=== PATIENT | male | born 1970 | race Caucasian/White ===

== ENCOUNTER 2016-08-25 16:23 | Emergency (ER) | payer BC ==
[2016-08-25 16:38] VITALS: BP 140/92
--- NOTE | 2016-08-25 16:46 | UC ---
Throat Pain/Nasal Alberto HPI - HPI Summary HPI Summary: complaint of nasal congestion, sinus pressure that started 1 month ago has been intermittent but keeps returning intermittent headaches post nasal drip cough is rpoductive and worse in the morning left ear feels plugged up denies fever and chills took some ibuprofen and sinus decongestant with somerelief <Kourtney Lara - Last Filed: 08/25/16 16:59> <Melanie Montes De Oca - Last Filed: 08/25/16 20:55> - History of Current Complaint Chief Complaint: UCRespiratory Stated Complaint: SINUS CONGESTION Time Seen by Provider: 08/25/16 16:34 - Allergies/Home Medications Allergies/Adverse Reactions: Allergies Allergy/AdvReac Type Severity Reaction Status Date / Time No Known Allergies Allergy Verified 08/25/16 16:39 PMH/Surg Hx/FS Hx/Imm Hx Previously Healthy: Yes Endocrine History Of: 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 Denies: Diabetes Cardiovascular History Of: Reports: Hypertension - on meds Denies: Cardiac Disorders Respiratory History Of: Denies: COPD, Asthma GI/ History Of: Denies: Ulcer - Surgical History Surgical History: Yes Surgery Procedure, Year, and Place: WISDOM TEETH EXTRACTION - Family History Known Family History: Positive: None Negative: Cardiac Disease, Hypertension, Diabetes - Social History Occupation: Employed Full-time Lives: With Family Alcohol Use: Occasionally Substance Use Type: None Smoking Status (MU): Never Smoked Tobacco - Immunization History Most Recent Influenza Vaccination: [id number] Season <Kourtney Lara - Last Filed: 08/25/16 16:59> Review of Systems Constitutional: Negative Skin: Negative Eyes: Negative ENT: Ear Ache, Nasal Discharge Respiratory: Cough Cardiovascular: Negative Gastrointestinal: Negative Genitourinary: Negative Motor: Negative Neurovascular: Negative Musculoskeletal: Negative Neurological: Negative Psychological: Negative All Other Systems Reviewed And Are Negative: Yes <Kourtney Lara - Last Filed: 08/25/16 16:59> Physical Exam Triage Information Reviewed: Yes Vital Signs: Initial Vital Signs Temp 97.6 F 08/25/16 16:35 Pulse 110 08/25/16 16:35 Resp 18 08/25/16 16:35 BP 140/92 08/25/16 16:35 Pulse Ox 99 08/25/16 16:35 Vital Signs Reviewed: Yes Eyes: Positive: Conjunctiva Clear ENT: Positive: Pharynx normal, Nasal congestion, Nasal drainage, TM bulging, Other: - maxillary sinus tenderness. Negative: TM red Neck: Positive: No Lymphadenopathy Respiratory: Positive: Lungs clear, Normal breath sounds, No respiratory distress Cardiovascular: Positive: No Murmur, Tachycardia Abdomen Description: Positive: Nontender, No Organomegaly, Soft Bowel Sounds: Positive: Present Musculoskeletal: Positive: No Edema Neurological: Positive: Alert Psychological Exam: Normal Skin Exam: Normal <Anette Larany - Last Filed: 08/25/16 16:59> Vital Signs: Initial Vital Signs Temp 97.6 F 08/25/16 16:35 Pulse 110 08/25/16 16:35 Resp 18 08/25/16 16:35 BP 140/92 08/25/16 16:35 Pulse Ox 99 08/25/16 16:35 <Melanie Montes De Oca - Last Filed: 08/25/16 20:55> Throat Pain/Nasal Course/Dx - Differential Dx/Diagnosis Differential Diagnosis/HQI/PQRI: Sinusitis, URI Provider Diagnoses: sinusitis, elevated blood pressure and HR <MarcoKourtney - Last Filed: 08/25/16 16:59> Discharge <MarcoKourtney - Last Filed: 08/25/16 16:59> <Melanie Montes De Oca - Last Filed: 08/25/16 20:55> - Discharge Plan Condition: Stable Disposition: HOME Prescriptions: Amoxicillin/Clavulanate TAB* [Augmentin TAB 875*] 875 mg PO BID #19 tab Patient Education Materials: Sinusitis (ED) Referrals: No Primary Care Phys,NOPCP [Primary Care Provider] - Additional Instructions: please make followup appointment with your primary care provider for further evaluation of your elevated blood pressure and heart rate SINUSITIS What is Sinusitis? Sinusitis is inflammation or infection of the lining of the sinuses behind the bones in your cheeks or forehead. Sinusitis may occur following a common cold, flu, or other infection; allergies; a tooth infection that spreads to the sinuses; swimming in contaminated water; pressure changes in airplanes at high altitudes; violent sneezing or nose blowing or smoking or breathing other peoples smoke. Symptoms Might Include: Nasal Congestion Sneezing Watery eyes, eye irritation, or eye itching Headaches Pressure in the cheeks Wheezing Trouble smelling Sore throat and coughing may occur Treatment Recommendations: Take medicines as prescribed until completely gone. Drink plenty of fluids. Use saline nose spray to thin the mucous and help the sinuses drain. Use a vaporizer or humidifier. Apply warm compresses to the face or forehead several times a day for 10 to 20 minutes. Call Your Doctor or Return Here IF: Your pain increases during treatment. You develop a high temperature. You develop unusual swelling around the eyes. You have difficulty with your vision. You develop a severe headache, earache, or toothache. You develop increased fever or fever that does not respond to medication such as Tylenol?. You have difficulty breathing or catching your breath. You begin to have any other new symptoms that worry you.
[2016-08-25] MEDS ORDERED: Amoxicillin/Clavulanate TAB* 875 MG PO ONE (16:51)
== END 2016-08-25 16:57 | disposition home or self-care (01) ==
LOC: UCEAST 16:23
DX: J32.9 Chronic sinusitis, unspecified (principal); I10 Essential (primary) hypertension
CPT/HCPCS: 99212; A9270-GY; G0463

== ENCOUNTER 2016-11-07 02:23 | Emergency (ER) | payer BC ==
--- NOTE | 2016-11-07 03:33 | ED ---
Dayanara Thapa SooYoung, scribed for Tigre Delaney MD on 11/07/16 at 0242 . Substance Abuse/Use - HPI Summary HPI Summary: LEVEL 5 CAVEAT: HPI LIMITED DUE TO PT CONDITION, INTOXICATED. A 46 y/o M BIBA found on sidewalk intoxicated. - History Of Current Complaint Chief Complaint: EDSubstanceAbuse Stated Complaint: ALCOHOL USE Hx Obtained From: EMS - Allergies/Home Medications Allergies/Adverse Reactions: Allergies Allergy/AdvReac Type Severity Reaction Status Date / Time No Known Allergies Allergy Verified 11/07/16 02:29 PMH/Surg Hx/FS Hx/Imm Hx Previously Healthy: No Endocrine/Hematology History: Reports: Hx Thyroid Disease - HX GRAVE'S DISEASE Denies: Hx Diabetes Cardiovascular History: Reports: Hx Hypertension - on meds Respiratory History: Denies: Hx Asthma, Hx Chronic Obstructive Pulmonary Disease (COPD) GI History: Denies: Hx Ulcer - Surgical History Surgery Procedure, Year, and Place: WISDOM TEETH EXTRACTION Infectious Disease History: No Infectious Disease History: Denies: Hx Hepatitis, Hx Human Immunodeficiency Virus (HIV), Traveled Outside the in Last 30 Days - Family History Known Family History: Positive: None Negative: Cardiac Disease, Hypertension, Diabetes - Social History Occupation: Employed Full-time Lives: With Family Alcohol Use: Weekly Alcohol Amount: pt states he gets intoxicated "every other day" Hx Substance Use: No Substance Use Type: Reports: None Hx Tobacco Use: No Smoking Status (MU): Never Smoked Tobacco Review of Systems - ROS Summary Review of Systems Summary: LEVEL 5 CAVEAT: ROS LIMITED DUE TO PT CONDITION, INTOXICATED. All Other Systems Reviewed And Are Negative: Yes Physical Exam Triage Information Reviewed: Yes Vital Signs On Initial Exam: Initial Vitals Temp Pulse Resp BP Pulse Ox 97.3 F 81 19 125/72 99 11/07/16 02:27 11/07/16 02:27 11/07/16 02:27 11/07/16 02:27 11/07/16 02:27 Vital Signs Reviewed: Yes Appearance: Positive: Well-Appearing, No Pain Distress - aob Skin: Positive: Warm Head/Face: Positive: Normal Head/Face Inspection Eyes: Positive: ALEXIA ENT: Positive: Hearing grossly normal Neck: Positive: Supple Respiratory/Lung Sounds: Positive: Breath Sounds Present Cardiovascular: Positive: RRR Abdomen Description: Positive: Nontender, Soft Bowel Sounds: Positive: Present Musculoskeletal: Positive: Strength/ROM Intact Neurological: Positive: Alert, Oriented to Person Place, Time - [place] Coma Scale Coma Scale Total: 15 Diagnostics - Vital Signs Vital Signs Temp Pulse Resp BP Pulse Ox 11/07/16 02:27 97.3 F 81 19 125/72 99 - Laboratory Lab Results: Lab Results 11/07/16 Range/Units 02:40 Serum Alcohol 277 H (<10) mg/dL Lab Statement: Any lab studies that have been ordered have been reviewed, and results considered in the medical decision making process. Re-Evaluation - Re-Evaluation First Eval Re-Evaluation Time: 11:24 - good ambulation Course/Dx - Diagnoses Provider Diagnoses: Alcohol intoxication Discharge - Discharge Plan Condition: Stable Disposition: HOME Patient Education Materials: Alcohol Intoxication (ED) Referrals: No Primary Care Phys,NOPCP [Primary Care Provider] - [facility] [place] [facility] [Outside] The documentation as recorded by the Dayanara husain SooYoung accurately reflects the service I personally performed and the decisions made by me, Tigre Delaney MD.
[2016-11-07 08:56] VITALS: BP 108/79
--- NOTE | 2016-11-07 11:27 | ED ---
Pricilla Thapa Auryana, scribed for Raheem Vega MD on 11/07/16 at 1124 . Progress - Progress Note Progress Note: Patient was signed out by Dr. Delaney Patient came in to the ED with alcohol intoxication. Patient is A&O x3. Patient has a normal cognition. Patient was ambulating with good steady gait. Patient had breakfast, therefore patient with be discharged hoe with PCP follow up. Patient is A&O x3 and is hemodynamically stable. P/E: Vital signs: reviewed General: Patient is comfortable lying in stretcher with no signs of distress HEENT: within normal limits Lungs: CTA B/L CVS: S1 & S2 present. No murmurs appreciated. ABDOMEN: Soft, non-tender. No signs of distention. No rebound no guarding, and no masses palpated. Bowel sounds are normal. EXTREMITIES: FROM in all major joints, no edema, no cyanosis or clubbing. NEURO: Alert and oriented x 3. No acute neurological deficits. Speech is normal and follows commands. SKIN: Dry and warm Re-Evaluation - Re-Evaluation First Eval Re-Evaluation Time: 11:24 - good ambulation Course/Dx - Course Course Of Treatment: Patient was signed out by Dr. Delaney. Patient came in to the ED with alcohol intoxication. Patient is A&O x3. Patient has a normal cognition. Patient was ambulating with good steady gait. Patient had breakfast, therefore patient with be discharged hoe with PCP follow up. Patient is A&O x3 and is hemodynamically stable. - Diagnoses Provider Diagnoses: Alcohol intoxication The documentation as recorded by the Pricilla husain Auryana accurately reflects the service I personally performed and the decisions made by , Raheem Vega MD.
== END 2016-11-07 11:10 | disposition home or self-care (01) ==
LOC: ED 02:23
DX: F10.129 Alcohol abuse with intoxication, unspecified (principal); Y90.8 Blood alcohol level of 240 mg/100 ml or more
CPT/HCPCS: 36415; 80320; 99282; G0480

== ENCOUNTER 2016-11-25 12:48 | Emergency (ER) | payer BC ==
[2016-11-25 13:28] VITALS: BP 127/94
--- NOTE | 2016-11-25 14:01 | UC ---
Throat Pain/Nasal Alberto HPI - HPI Summary HPI Summary: 46 y/o male presents to the urgent care c/o of sinus pain and congestion with yellowish nasal discharge and pressure for the past 3 weeks. Pt reports he also has a non-productive cough that is worse at night. He has been taking Robitussin to alleviate symptoms, but now he feels is getting worse. He also has a mild STEARNS, 3/10. Pt denies fever, SOB, chest pain, N/V/D, myalgias. - History of Current Complaint Chief Complaint: UCGeneralIllness Stated Complaint: SINUS COMPLAINT Time Seen by Provider: 11/25/16 13:40 Hx Obtained From: Patient Onset/Duration: Gradual Onset, Lasting Weeks Severity: Moderate Pain Intensity: 3 Pain Scale Used: 0-10 Numeric Cough: Nonproductive Associated Signs & Symptoms: Positive: Sinus Discomfort, Nasal Discharge - yellowish in color. Negative: Fever, Vomiting, Rash - Epiglottits Risk Factors Epiglottis Risk Factors: Negative - Allergies/Home Medications Allergies/Adverse Reactions: Allergies Allergy/AdvReac Type Severity Reaction Status Date / Time No Known Allergies Allergy Verified 11/25/16 13:28 PMH/Surg Hx/FS Hx/Imm Hx Previously Healthy: Yes Endocrine History: Hypothyroidism Cardiovascular History: Hypertension - Surgical History Surgical History: Yes Surgery Procedure, Year, and Place: WISDOM TEETH EXTRACTION - Family History Known Family History: Positive: None Negative: Cardiac Disease, Hypertension, Diabetes Family History: hypothyrodism - Social History Occupation: Employed Full-time Lives: With Family Alcohol Use: Weekly Alcohol Amount: pt states he gets intoxicated "every other day" Substance Use Type: None Smoking Status (MU): Never Smoked Tobacco - Immunization History Most Recent Influenza Vaccination: [id number] Season Review of Systems Constitutional: Negative Skin: Negative Eyes: Negative ENT: Nasal Discharge - with sinus congestion and pain x 3 weeks Respiratory: Cough - nonproductive Cardiovascular: Negative Gastrointestinal: Negative Genitourinary: Negative Motor: Negative Neurovascular: Negative Musculoskeletal: Negative Neurological: Negative Psychological: Negative All Other Systems Reviewed And Are Negative: Yes Physical Exam Triage Information Reviewed: Yes Appearance: Well-Appearing, No Pain Distress, Well-Nourished, Obese Vital Signs: Initial Vital Signs Temp 97.8 F 11/25/16 13:23 Pulse 85 11/25/16 13:23 Resp 18 11/25/16 13:23 BP 127/94 11/25/16 13:23 Pulse Ox 97 11/25/16 13:23 Vital Signs Reviewed: Yes Eye Exam: Normal Eyes: Positive: Conjunctiva Clear - PERRLA, EOMI, fundus grossly normal ENT: Positive: Hearing grossly normal, Pharynx normal - Positive yellowish postnasal drip, Nasal congestion, Nasal drainage - nasal mucosa with erythema and edematous and positive yellowish nasal discharge., TMs normal. Negative: Tonsillar swelling, Tonsillar exudate Dental Exam: Normal Neck exam: Normal Neck: Positive: Supple, Nontender, No Lymphadenopathy Respiratory Exam: Normal Respiratory: Positive: Chest non-tender, Lungs clear, Normal breath sounds. Negative: Wheezing Cardiovascular Exam: Normal Cardiovascular: Positive: RRR, No Murmur, Pulses Normal Abdominal Exam: Normal Abdomen Description: Positive: Nontender, No Organomegaly, Soft. Negative: CVA Tenderness (R), CVA Tenderness (L) Bowel Sounds: Positive: Present Musculoskeletal Exam: Normal Musculoskeletal: Positive: Strength Intact, ROM Intact, No Edema Neurological Exam: Normal Psychological Exam: Normal Skin Exam: Normal Throat Pain/Nasal Course/Dx - Course Course Of Treatment: Sinus pain and congestion, non productive cough x 3 weeks: Hx obtained. PE abnormal findings:ENT: Positive: Hearing grossly normal, Pharynx normal - Positive yellowish postnasal drip, Nasal congestion, Nasal drainage - nasal mucosa with erythema and edematous and positive yellowish nasal discharge., TMs normal. Negative: Tonsillar swelling, Tonsillar exudate. Pt with 3 weeks of sinusitis, Pt Rx amoxicillin 875mg PO BID x 10 days and Tessalon 100mg PO tabs to alleviate symptoms. Advised to increase fluid intake and rest. To take full course of antibiotic to avoid recurrence. Pt undertood and agreed. - Differential Dx/Diagnosis Differential Diagnosis/HQI/PQRI: Laryngitis, Peritonsillar Abscess, Pharyngitis , Sinusitis, Tonsillitis, URI Provider Diagnoses: Bacterial sinusitis, bronchospasm Discharge - Discharge Plan Condition: Stable Disposition: HOME Prescriptions: Amoxicillin (*) [Amoxicillin 875 MG (*)] 875 mg PO BID #20 tab Benzonatate CAP* [Tessalon 100 MG CAP*] 100 mg PO TID #15 cap Patient Education Materials: Sinusitis (ED), Bronchospasm (ED) Referrals: No Primary Care Phys,NOPCP [Primary Care Provider] - [facility] [place] [facility] [Outside] Additional Instructions: Please take medications as instructed and finish the full course of treatment to avoid recurrent infection. Increase fluid intake, and rest. If you do not improve or if symptoms worsen after the course of antibiotics, you should either follow up with your PCP or return to the urgent care for further evaluation and treatment.
== END 2016-11-25 14:07 | disposition home or self-care (01) ==
LOC: UCEAST 12:48
DX: J32.9 Chronic sinusitis, unspecified (principal); J98.01 Acute bronchospasm; E03.9 Hypothyroidism, unspecified; I10 Essential (primary) hypertension; E66.9 Obesity, unspecified
CPT/HCPCS: 99212; G0463

== ENCOUNTER 2016-12-30 10:08 | Emergency (ER) | payer BC ==
[2016-12-30] MEDS ORDERED: Albuterol 2.5 MG/3 ML NEB.SOL* (0.083%) INH ONE ×2 (10:26→11:21)
[2016-12-30] MEDS ORDERED: Ipratropium 0.5MG/2.5ML NEB* 0.5 MG/2.5 ML NEB.SOLN INH ONE (10:26)
[2016-12-30] MEDS ORDERED: methylPREDNISolone 125 MG* 2 ML VIAL IV ONE (10:27)
--- NOTE | 2016-12-30 10:28 | UC ---
Respiratory Complaint HPI - HPI Summary HPI Summary: 46 yo male awoke about 3 AM with stomach acid in his mouth. Hx of GERD felt as though he aspirated some throughout the night got progressively worse with cough/shortness of breath/ diaphoresis/weakness/fever and chills chest hurts with deep inspiration - History of Current Complaint Stated Complaint: COUGH CHILLS Time Seen by Provider: 12/30/16 10:25 Hx Obtained From: Patient Onset/Duration: Sudden Onset, Lasting Hours Timing: Constant Severity Initially: Mild Severity Currently: Severe Pain Intensity: 3 Pain Scale Used: 0-10 Numeric Character: Cough: Nonproductive Aggravating Factors: Exertion Alleviating Factors: Upright Position Associated Signs And Symptoms: Positive: Dyspnea, Fever, Chills, Wheezing, Dizziness - Allergies/Home Medications Allergies/Adverse Reactions: Allergies Allergy/AdvReac Type Severity Reaction Status Date / Time No Known Allergies Allergy Verified 12/30/16 10:38 PMH/Surg Hx/FS Hx/Imm Hx Previously Healthy: Yes GI/ History: Gastroesophageal Reflux - Surgical History Surgical History: Yes Surgery Procedure, Year, and Place: WISDOM TEETH EXTRACTION - Family History Known Family History: Positive: None Negative: Cardiac Disease, Hypertension, Diabetes, Respiratory Disease Family History: hypothyrodism - Social History Alcohol Use: Weekly Alcohol Amount: pt states he gets intoxicated "every other day" Substance Use Type: None Smoking Status (MU): Never Smoked Tobacco - Immunization History Most Recent Influenza Vaccination: [id number] Season Review of Systems Constitutional: Fever, Chills, Fatigue Skin: Negative Eyes: Negative ENT: Negative Respiratory: Shortness Of Breath, Cough Cardiovascular: Chest Pain Gastrointestinal: Negative Genitourinary: Negative Motor: Negative Neurovascular: Negative Musculoskeletal: Negative Neurological: Negative Psychological: Negative All Other Systems Reviewed And Are Negative: Yes Physical Exam Triage Information Reviewed: Yes Appearance: Ill-Appearing Vital Signs Reviewed: Yes Eyes: Positive: Conjunctiva Clear ENT: Positive: Hearing grossly normal, Other: - slight hoarseness. Negative: Nasal congestion, Nasal drainage, Tonsillar exudate, Trismus Dental Exam: Normal Neck: Positive: Supple, Nontender Respiratory: Positive: Respiratory distress, Accessory muscle use, Wheezing Cardiovascular: Positive: RRR, No Murmur, Tachycardia Abdomen Description: Positive: Nontender, Soft Bowel Sounds: Positive: Present Neurological: Positive: Alert, Muscle Tone Normal Psychological Exam: Normal Skin Exam: Other - diaphorectic Re-Evaluation - Re-Evaluation First Eval Re-Evaluation Time: 10:56 Change: Improved - still wheezing but decreased Respiratory Course/Dx - Differential Dx/Diagnosis Provider Diagnoses: bronchospasm. ? aspiration pneumonia Discharge - Discharge Plan Condition: Stable Disposition: TRANS HIGHER LVL OF CARE FAC
[2016-12-30 11:08] VITALS: BP 127/67
== END 2016-12-30 11:40 | disposition short-term general hospital (02) ==
LOC: UCEAST 10:08
DX: J98.01 Acute bronchospasm (principal)
CPT/HCPCS: 93005; 96374; 99213; G0463; J2930; J7644

== ENCOUNTER 2016-12-30 12:03 | Observation (INO) | payer BC ==
[2016-12-30] MEDS ORDERED: NS 0.9% 1000 ML* 1,000 ML IV ONE (12:49)
--- NOTE | 2016-12-30 13:20 | RAD ---
INDICATION: Shortness of breath and cough. COMPARISON: There are no prior studies available for comparison. TECHNIQUE: Dual-energy PA and lateral views of the chest were obtained. FINDINGS: Cardiac and mediastinal contours appear to be within normal limits. The lungs are underinflated. There is mild prominence of interstitial markings with more focal patchy infiltrates in the mid and lower lung mark more prominent on the left side. No pleural effusion is seen. IMPRESSION: BILATERAL INFILTRATES, RECOMMEND FOLLOW-UP CHEST X-RAYS TO RESOLUTION.
[2016-12-30 13:35] LABS: Urine Bilirubin Negative (Negative); Urine Glucose Negative (Negative); Urine Nitrite Negative (Negative)
[2016-12-30 13:38] LABS: Hematocrit 43 % (42-52); Hemoglobin 14.2 g/dl (14.0-18.0); Mean Corpuscular HGB Conc 33 g/dl (31-36); Mean Corpuscular Hemoglobin 29 pg (27-31); Mean Corpuscular Volume 89 fL (80-94); Mean Platelet Volume 9 um3 (7.4-10.4); Red Blood Count 4.85 10^6/ul (4.0-5.4); Red Cell Distribution Width 14 % (10.5-15); White Blood Count 7.7 10^3/ul (3.5-10.8)
[2016-12-30 13:39] LABS: Add Diff/Slide Review? Manual Diff Added; Comments Flag Yes
[2016-12-30 13:52] LABS: ALT 19 U/L (7-52); AST 15 U/L (13-39); Albumin 3.8 g/dL (3.2-5.2); Alkaline Phosphatase 47 U/L (34-104); Anion Gap 7 mmol/L (2-11); BUN/Creatinine Ratio 16.2 (8-20); Blood Urea Nitrogen 16 mg/dL (6-24); C Reactive Protein 10.82 mg/L (< 5.00); CO2 Carbon Dioxide 23 mmol/L (22-32); Calcium 9.1 mg/dL (8.6-10.3); Chloride 106 mmol/L (101-111); Creatine Kinase 132 U/L (10-223); EGFR African American 104.7 (>60); EGFR Non-African American 81.4 (>60); Globulin 2.8 g/dL (2-4); Glucose 126 mg/dL (70-100); Potassium 3.5 mmol/L (3.5-5.0); Sodium 136 mmol/L (133-145); Total Protein 6.6 g/dL (6.4-8.9)
[2016-12-30 13:54] LABS: Troponin I 0.03 ng/mL (<0.04)
[2016-12-30 13:58] LABS: Immature Granulocytes 9 % (0-9); Neutrophil % 78 % (38-83); RBC Morphology Normal (Normal)
[2016-12-30] MEDS ORDERED: Zosyn per Pharmacy* NOTE FOLLOW UP SCH (14:00)
[2016-12-30] MEDS ORDERED: NS 0.9% 1000 ML* 1,000 ML IV SCH (14:15)
[2016-12-30 14:32] LABS: Benzodiazepine Urine Screen None Detected (None Detect)
[2016-12-30] MEDS ORDERED: Enoxaparin(*) 40 MG/0.4 ML SYR SUBCUT SCH (15:00)
[2016-12-30 15:15] LABS: Alcohol < 10 mg/dL (<10)
[2016-12-30] MEDS: Acetaminophen TAB* 325 MG PO PRN ×2 (16:38→21:14)
--- NOTE | 2016-12-30 17:15 | HP ---
CC: [facility] [place], DONATO Craig * HISTORY AND PHYSICAL: DATE OF ADMISSION: 12/30/16 PRIMARY CARE PROVIDER: DONATO Craig, from [facility] [place]. CHIEF COMPLAINT: Shortness of breath and "aspiration." HISTORY OF PRESENT ILLNESS: Hari Avendaño is a 46-year-old male with a history of gastroesophageal reflux disease, who woke up today at 4 a.m. feeling "gurgling" in his stomach, sensation of gastroesophageal reflux disease, and substernal burning as well as shortness of breath and cough. The patient stated that he has a history of gastro-esophageal reflux disease that had been well controlled with omeprazole that he takes. He states that he usually drinks four beers every other or every night and he had drunk four beers last night. He ate at 2 a.m. in the morning, which included fried chicken, greens, and potatoes. Right after eating, he fell asleep and he woke up at 4 feeling his reflux symptoms as above. He also started complaining of cough or shortness of breath and felt "acid taste in his mouth." He presented to [facility] and he was noted to have increased work of breathing and respiratory distress. At that point, he was transferred to our facility for further evaluation. Here, he was in marked tachycardia with heart rate in the 130s, now it is getting better with a heart rate in the 110s. He is not hypoxemic and he is rather comfortable. He is going to be placed on overnight observation with his diagnosis of bilateral pneumonia due to aspiration. PAST MEDICAL HISTORY: 1. Gastroesophageal reflux disease. 2. Hypertension. 3. Dyslipidemia. 4. Anxiety. 5. History of Graves' disease, status post radio iodine treatment. MEDICATIONS: Include: 1. Atorvastatin 20 mg daily. 2. Vitamin D3 5000 units daily. 3. Hydrochlorothiazide 12.5 mg daily. 4. Levothyroxine 125 mcg daily. 5. Omeprazole 20 mg daily. 6. Testosterone gel 2.5 g topical daily. 7. BuSpar 10 mg b.i.d. ALLERGIES: No known drug allergies. FAMILY HISTORY: Father with a history of COPD, who is oxygen dependent and mother with history of thyroid problems. SOCIAL HISTORY: The patient denies any tobacco or drug use. He drinks 4 to 6 beers every night or every other night. 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 He is and his , Mandi, is his surrogate. REVIEW OF SYSTEMS: The patient stated that his GERD symptoms usually happen in the middle of the night. Although he is aware about not eating just before going to bed and having his head of the bed elevated, he rarely uses those precautions, as above mentioned, he ate just immediately after going to bed at 2 a.m. Most of the time, the patient stated that his GERD symptoms are controlled with omeprazole. The patient also complains of pleuritic chest pain that occurred when he was coughing today in the morning. All of the remaining 14 systems were reviewed with the patient and they were all otherwise negative. PHYSICAL EXAMINATION GENERAL: The patient is a very pleasant 46-year-old male, who is in no acute distress. The patient is alert, awake, oriented x3. VITAL SIGNS: Blood pressure is 133/82, heart rate of 114 , respiratory rate 18, oxygen saturation 95% on room air, temperature 99.9. HEENT: Head: Atraumatic, normocephalic. Eyes: Pupils are equal, reactive to light and accommodation. Oropharynx clear. Mucosa moist. NECK: Supple. No JVD. No bruits bilaterally. RESPIRATORY: Scant crackles at bilateral bases, left more than right. CARDIOVASCULAR: Regular rate and rhythm, no murmur, tachycardia. ABDOMEN: Protuberant, soft, and nontender. Bowel sounds are present in all 4 quadrants. EXTREMITIES: There is no edema. Pulses are +2 bilaterally. No clubbing or cyanosis. NEURO: Speech clear. Cranial nerves II through XII grossly intact. Motor strength is 5/5 bilaterally. SKIN: Evaluation of the skin, no ecchymotic areas or rashes noted. DIAGNOSTIC STUDIES/LAB DATA: Showed white blood cell count of 7.7, hemoglobin of 14.2, hematocrit of 43, and platelets of 199. Sodium was 136, potassium 3.5, chloride 106, carbon dioxide 23, BUN 16, creatinine 0.99. Liver function tests are unremarkable. Troponin of 0.03. C- reactive protein of 10. Urinalysis is unremarkable. Portable chest x-ray, impression: "Bilateral infiltrates. Recommend followup chest x-ray to resolution." The patient's EKG shows sinus tachycardia with a heart rate of 125 beats per minute with nonspecific ST changes, most likely tachycardia related. ASSESSMENT AND PLAN: 1. The patient initially presented with respiratory distress due to aspiration and aspiration pneumonia. Currently, he stabilized and actually oxygenates without the use of supplemental oxygen very well. His increased work of breathing resolved. At this point, the patient is going to be placed on overnight observation, treated with Zosyn. Sputum cultures are going to be obtained. 2. In regards to the patient's gastroesophageal reflux disease, the patient was counseled in regards of healthy diet when with reflux. The patient was educated to eat the last meal for approximately 4 hours before going to bed. To sleep with his head of bed elevated at least 20 degrees or more. The patient also was educated to avoid spicy foods and to start diet and exercise. He was also educated about limiting his alcohol use. 3. In regards to hypothyroidism, his Synthroid is going to be continued. 4. For his hypertension, his hydrochlorothiazide is going to be held for the time being. 5. For dyslipidemia, his statin is going to be continued. 6. For DVT prophylaxis, the patient is going to be placed on Lovenox subcutaneously. 7. The patient's code status is full and his surrogate is his . The patient is going to be placed on overnight observation. I suspect he will be able to be discharged tomorrow. TIME SPENT: Approximately 55 minutes was spent on admission of this patient. [id number]/[facility] #: [id number] MTDD
[2016-12-30] MEDS ORDERED: Iohexol 350* (CONTRAST) 500 ML MDV IV ONE (17:32)
--- NOTE | 2016-12-30 17:45 | RAD ---
HISTORY: Chest congestion, rule out PE COMPARISONS: None TECHNIQUE: Multiple contiguous axial CT scans of the chest were obtained after the administration of nonionic intravenous contrast, timed to the pulmonary arterial phase of contrast enhancement.. Coronal and sagittal multiplanar reformations are also submitted for review. FINDINGS: The study is limited by patient motion artifact.. Additionally, evaluation is limited by suboptimal contrast opacification. The attenuation of the main pulmonary artery is at the borderline for detection of pulmonary bullae. NECK AND THYROID: The lower neck and thyroid are unremarkable. CHEST WALL: There is no lower cervical, axillary, or supraclavicular lymphadenopathy by size criteria. HEART AND PERICARDIUM: The heart is unremarkable. AORTA AND PULMONARY VASCULATURE: Evaluation limited by patient motion artifact and by suboptimal contrast opacification. Within the limitations of the study, there is no pulmonary arterial filling defects to suggest pulmonary was. MEDIASTINUM: There is no mediastinal lymphadenopathy by size criteria. SUZY: There is no hilar lymphadenopathy by size criteria. AIRWAY AND ESOPHAGUS: The airway is unremarkable, without endobronchial filling defect. The esophagus is grossly normal. LUNG PARENCHYMA: There is patchy and confluent ground less opacification throughout both lungs, more pronounced on the left than on the right. PLEURA: No pleural abnormalities are noted. UPPER ABDOMEN: The upper abdomen is unremarkable. BONES AND SOFT TISSUES: No bone or soft tissue abnormalities are noted. OTHER: None. IMPRESSION: 1. LIMITED STUDY. 2. WITHIN THE LIMITATIONS OF THE STUDY, THERE IS NO PULMONARY ARTERIAL FILLING DEFECT TO SUGGEST PULMONARY EMBOLUS. 3. THERE IS DIFFUSE AIRSPACE DISEASE THROUGHOUT THE LUNGS BILATERALLY, GREATER ON THE LEFT THAN ON THE RIGHT. THE DIFFERENTIAL INCLUDES INFECTION OR NONINFECTIOUS INFLAMMATORY PROCESSES. RECOMMEND FOLLOW-UP UNTIL RESOLUTION
[2016-12-30] MEDS: ZOSYN 3.375 GM Q8H per EXTENDED INFUSION IVPB SCH ×2 (18:19)
[2016-12-30] MEDS ORDERED: busPIRone TAB* 10 MG PO SCH (21:00)
[2016-12-31] MEDS: ZOSYN 3.375 GM Q8H per EXTENDED INFUSION IVPB SCH ×2 (01:58)
[2016-12-31] MEDS ORDERED: Levothyroxine TAB* 125 MCG TAB PO SCH (06:00)
[2016-12-31 07:50] VITALS: BP 136/87
[2016-12-31] MEDS ORDERED: Cholecalciferol TAB* 1000 UNITS PO SCH (09:00)
[2016-12-31] MEDS ORDERED: Atorvastatin* 40 MG TAB PO SCH (09:00)
[2016-12-31] MEDS ORDERED: Omeprazole CAP* 20 MG PO SCH (09:00)
--- NOTE | 2016-12-31 19:32 | ED ---
Cosme Thapa Alfonso, scribed for Raheem Vega MD on 12/30/16 at 1218 . Respiratory - HPI Summary HPI Summary: This patient is a 46 year old M presenting to [facility] with a chief complaint of acid reflux since 299. He reports I may have aspirated something. Patient was given 2 breathing treatments at [facility] earlier today. He rates the pain 2/10 in severity. Symptoms aggravated by deep breaths and alleviated by nothing. Pt reports fever and coughing. Pt denies CP and SOB. Denies PMHx of asthma and COPD. PMHx of Graves disease and GERD. - History of Current Complaint Chief Complaint: EDUpperRespComplaint Stated Complaint: POSS PNEUMONIA Time Seen by Provider: 12/30/16 12:09 Hx Obtained From: Patient Onset/Duration: Sudden Onset, Lasting Hours - 299 today, Still Present Timing: Constant Initial Severity: Mild Current Severity: Mild Pain Intensity: 2 - /10 Character: Cough (Nonproductive) Aggravating Factor(s): Deep Breaths Alleviating Factor(s): Nothing Associated Signs and Symptoms: Fever - Allergy/Home Medications Allergies/Adverse Reactions: Allergies Allergy/AdvReac Type Severity Reaction Status Date / Time No Known Allergies Allergy Verified 12/30/16 10:38 Home Medications: Home Medications Atorvastatin* [Lipitor 40 MG*] 20 mg PO DAILY 12/30/16 [History Confirmed ] Cholecalciferol TAB* [Vitamin D TAB*] 5,000 units PO DAILY 12/30/16 [History Confirmed 12/30/16] Hydrochlorothiazide TAB* [Hydrodiuril TAB*] 12.5 mg PO DAILY 12/30/16 [History Confirmed 12/30/16] Levothyroxine TAB* [Synthroid 125 MCG TAB*] 125 mcg PO DAILY 12/30/16 [History Confirmed 12/30/16] Omeprazole CAP* [Prilosec CAP* 20 MG] 20 mg PO DAILY 12/30/16 [History Confirmed 12/30/16] Testosterone [Androgel] 2.5 gm TOPICAL QAM 12/30/16 [History Confirmed 12/30/16] PMH/Surg Hx/FS Hx/Imm Hx Endocrine/Hematology History: Reports: Hx Thyroid Disease - HX GRAVE'S DISEASE Denies: Hx Diabetes Cardiovascular History: Reports: Hx Hypertension - on meds Respiratory History: Denies: Hx Asthma, Hx Chronic Obstructive Pulmonary Disease (COPD) GI History: Denies: Hx Ulcer - Surgical History Surgery Procedure, Year, and Place: WISDOM TEETH EXTRACTION Infectious Disease History: Denies: Hx Clostridium Difficile, Hx Hepatitis, Hx Human Immunodeficiency Virus (HIV), Hx of Known/Suspected MRSA, Hx Shingles, Hx Tuberculosis, Hx Known/ Suspected VRE, Hx Known/Suspected VRSA, History Other Infectious Disease, Traveled Outside the [place] in Last 30 Days - Family History Known Family History: Negative: Cardiac Disease, Hypertension, Diabetes, Respiratory Disease Family History: hypothyrodism - Social History Alcohol Use: Weekly Alcohol Amount: pt states he gets intoxicated "every other day" Hx Substance Use: No Substance Use Type: Reports: None Hx Tobacco Use: No Smoking Status (MU): Never Smoked Tobacco Review of Systems Positive: Fever Negative: Chest Pain Positive: Cough. Negative: Shortness Of Breath Positive: Other - Positive acid reflux. All Other Systems Reviewed And Are Negative: Yes Physical Exam - Summary Physical Exam Summary: VITAL SIGNS: Reviewed. GENERAL: Patient is a well-developed and nourished male who is lying comfortable in the stretcher. Patient is not in any acute respiratory distress. HEAD AND FACE: No signs of trauma. No ecchymosis, hematomas or skull depressions. No sinus tenderness. EYES: PERRLA, EOMI x 2, No injected conjunctiva, no nystagmus. EARS: Hearing grossly intact. Ear canals and tympanic membranes are within normal limits. MOUTH: Oropharynx within normal limits. NECK: Supple, trachea is midline, no adenopathy, no JVD, no carotid bruit, no c- spine tenderness, neck with full ROM. CHEST: Symmetric, no tenderness at palpation LUNGS: Clear to auscultation bilaterally. No wheezing. Crackles in bilateral bases of lungs. CVS: Tachycardia, S1 and S2 present, no murmurs or gallops appreciated. ABDOMEN: Soft, non-tender. No signs of distention. No rebound no guarding, and no masses palpated. Bowel sounds are normal. EXTREMITIES: FROM in all major joints, no edema, no cyanosis or clubbing. NEURO: Alert and oriented x 3. No acute neurological deficits. Speech is normal and follows commands. SKIN: Dry and warm Triage Information Reviewed: Yes Vital Signs On Initial Exam: Initial Vitals Temp Pulse Resp BP Pulse Ox 99.9 F 129 20 121/76 94 12/30/16 12:07 12/30/16 12:07 12/30/16 12:07 12/30/16 12:07 12/30/16 12:07 Vital Signs Reviewed: Yes Diagnostics - Vital Signs Vital Signs Temp Pulse Resp BP Pulse Ox 12/30/16 12:07 99.9 F 129 20 121/76 94 - Laboratory Lab Results: Lab Results 12/30/16 12/30/16 12/30/16 Range/Units 13:18 13:18 13:18 WBC 7.7 (3.5-10.8) 10^3/ul RBC 4.85 (4.0-5.4) 10^6/ul Hgb 14.2 (14.0-18.0) g/dl Hct 43 (42-52) % MCV 89 (80-94) fL MCH 29 (27-31) pg MCHC 33 (31-36) g/dl RDW 14 (10.5-15) % Plt Count 199 (150-450) 10^3/ul MPV 9 (7.4-10.4) um3 Immature Gran % (Auto) 9 (0-9) % Absolute Neuts (auto) 6.7 (1.5-7.7) 10^3/ul Absolute Lymphs (auto) 0.3 L (1.0-4.8) 10^3/ul Absolute Monos (auto) 0.7 (0-0.8) 10^3/ul Absolute Eos (auto) 0 (0-0.6) 10^3/ul Absolute Basos (auto) 0 (0-0.2) 10^3/ul Absolute Nucleated RBC Not Reportable Neutrophils % 78 (38-83) % Band Neutrophils % 9 H (0-8) % Lymphocytes % 4 L (25-47) % Monocytes % 9 (0-13) % Normal RBC Morphology Normal (Normal) D-Dimer, Quantitative (Less Than 230) ng/mL Sodium 136 (133-145) mmol/L Potassium 3.5 (3.5-5.0) mmol/L Chloride 106 (101-111) mmol/L Carbon Dioxide 23 (22-32) mmol/L Anion Gap 7 (2-11) mmol/L BUN 16 (6-24) mg/dL Creatinine 0.99 (0.67-1.17) mg/dL Est GFR ( Amer) 104.7 (>60) Est GFR (Non-Af Amer) 81.4 (>60) BUN/Creatinine Ratio 16.2 (8-20) Glucose 126 H (70-100) mg/dL Lactic Acid 2.2 H* (0.5-2.0) mmol/L Calcium 9.1 (8.6-10.3) mg/dL Total Bilirubin 0.90 (0.2-1.0) mg/dL AST 15 (13-39) U/L ALT 19 (7-52) U/L Alkaline Phosphatase 47 (34-104) U/L Total Creatine Kinase 132 (10-223) U/L Troponin I 0.03 (<0.04) ng/mL C-Reactive Protein 10.82 H (< 5.00) mg/L B-Natriuretic Peptide ( - 100) pg/mL Total Protein 6.6 (6.4-8.9) g/dL Albumin 3.8 (3.2-5.2) g/dL Globulin 2.8 (2-4) g/dL Albumin/Globulin Ratio 1.4 (1-3) Urine Color Urine Appearance Urine pH (5-9) Ur Specific [place] (1.010-1.030) Urine Protein (Negative) Urine Ketones (Negative) Urine Blood (Negative) Urine Nitrate (Negative) Urine Bilirubin (Negative) Urine Urobilinogen (Negative) Ur Leukocyte Esterase (Negative) Urine Glucose (Negative) Serum Alcohol < 10 (<10) mg/dL 12/30/16 12/30/16 12/30/16 Range/Units 13:18 13:18 13:20 WBC (3.5-10.8) 10^3/ul RBC (4.0-5.4) 10^6/ul Hgb (14.0-18.0) g/dl Hct (42-52) % MCV (80-94) fL MCH (27-31) pg MCHC (31-36) g/dl RDW (10.5-15) % Plt Count (150-450) 10^3/ul MPV (7.4-10.4) um3 Immature Gran % (Auto) (0-9) % Absolute Neuts (auto) (1.5-7.7) 10^3/ul Absolute Lymphs (auto) (1.0-4.8) 10^3/ul Absolute Monos (auto) (0-0.8) 10^3/ul Absolute Eos (auto) (0-0.6) 10^3/ul Absolute Basos (auto) (0-0.2) 10^3/ul Absolute Nucleated RBC Neutrophils % (38-83) % Band Neutrophils % (0-8) % Lymphocytes % (25-47) % Monocytes % (0-13) % Normal RBC Morphology (Normal) D-Dimer, Quantitative 365 H (Less Than 230) ng/mL Sodium (133-145) mmol/L Potassium (3.5-5.0) mmol/L Chloride (101-111) mmol/L Carbon Dioxide (22-32) mmol/L Anion Gap (2-11) mmol/L BUN (6-24) mg/dL Creatinine (0.67-1.17) mg/dL Est GFR ( Amer) (>60) Est GFR (Non-Af Amer) (>60) BUN/Creatinine Ratio (8-20) Glucose (70-100) mg/dL Lactic Acid (0.5-2.0) mmol/L Calcium (8.6-10.3) mg/dL Total Bilirubin (0.2-1.0) mg/dL AST (13-39) U/L ALT (7-52) U/L Alkaline Phosphatase (34-104) U/L Total Creatine Kinase (10-223) U/L Troponin I (<0.04) ng/mL C-Reactive Protein (< 5.00) mg/L B-Natriuretic Peptide 26 ( - 100) pg/mL Total Protein (6.4-8.9) g/dL Albumin (3.2-5.2) g/dL Globulin (2-4) g/dL Albumin/Globulin Ratio (1-3) Urine Color Yellow Urine Appearance Clear Urine pH 5.0 (5-9) Ur Specific [place] 1.020 (1.010-1.030) Urine Protein Negative (Negative) Urine Ketones Negative (Negative) Urine Blood Negative (Negative) Urine Nitrate Negative (Negative) Urine Bilirubin Negative (Negative) Urine Urobilinogen Negative (Negative) Ur Leukocyte Esterase Negative (Negative) Urine Glucose Negative (Negative) Serum Alcohol (<10) mg/dL Result Diagrams: 12/30/16 13:18 12/30/16 13:18 Lab Statement: Any lab studies that have been ordered have been reviewed, and results considered in the medical decision making process. - Radiology CXR Radiology Interpretation Completed By: Radiologist - CXR reveals NO ACTIVE CARDIOPULMONARY DISEASE IS NOTED. - EKG 1227 Cardiac Rate: Tachycardia - BPM 125 EKG Rhythm: Sinus Tachycardia EKG Interpretation: No ST elevation Disposition - Course Course Of Treatment: This patient is a 46 year old M presenting to [facility] with a chief complaint of acid reflux since 299. He reports I may have aspirated something. Patient was given 2 breathing treatments at [facility] earlier today. He rates the pain 2/10 in severity. Symptoms aggravated by deep breaths and alleviated by nothing. Pt reports fever and coughing. Pt denies CP and SOB. Denies PMHx of asthma and COPD. PMHx of Graves disease and GERD. Assessment/Plan: Test results without any significant findings expect for glucose of 126 and CRP 10.82. Urinalysis and UTox negative for UTI. CXR reveals BILATERAL INFILTRATES, RECOMMEND FOLLOW-UP CHEST X-RAYS TO RESOLUTION. In the ED course patient given IV fluids and started on Zosyn to cover the aspiration pneumonia. At this point I discussed the case with Dr. Zaragoza who accepted the patient for admission. At the time of admission, patient was A&Ox3. - Diagnoses Provider Diagnoses: Aspiration pneumonia Discharge - Discharge Plan Condition: Improved Disposition: ADMITTED TO [facility] The documentation as recorded by the Cosme husain Alfonso accurately reflects the service I personally performed and the decisions made by me, Raheem Vega MD.
--- NOTE | 2017-01-01 05:36 | DS ---
CC: DONATO Craig * DISCHARGE SUMMARY: DATE OF ADMISSION: 12/30/16 DATE OF DISCHARGE: 12/31/16 PRIMARY CARE PROVIDER: DONATO Craig from [place]. DISCHARGE DIAGNOSIS: Aspiration pneumonia. SECONDARY DIAGNOSES: 1. Gastroesophageal reflux disease. 2. Hypertension. 3. Dyslipidemia. 4. Anxiety. 5. History of Graves' disease, status post radioiodine treatment. 6. Subsequent hypothyroidism. MEDICATIONS AT DISCHARGE: Include: 1. Cefdinir 300 mg p.o. b.i.d. for a total of 7 days. 2. Z-ALVINA use as directed. 3. Lipitor 20 mg daily. 4. Vitamin D 5000 units daily. 5. Hydrochlorothiazide 12.5 mg daily. 6. Synthroid 125 mcg daily. 7. Omeprazole 20 mg daily. 8. AndroGel topical on a daily basis. 9. BuSpar 10 mg b.i.d. LABORATORY DATA: In addition to the one that was reported in history and physical at admission, the patient's D-dimer was 365. His urine drug screen was unremarkable and negative and serum alcohol below detectable. CT angiogram of the chest obtained on 12/30/16, impression: "Limited study. Within the limitations of the study, there is no pulmonary artery filling defect to suggest pulmonary embolism. There is diffuse airspace disease throughout the lungs bilaterally, greater on the left than on the right. The differential includes infection or non- infection inflammatory processes. Recommend followup on the resolution." HOSPITALIZATION COURSE: Hari Avendaño is a 46-year-old male with history of gastroesophageal reflux disease who the night prior to admission ate at 2 a.m. and right away fell asleep. He also drank approximately 4 to 6 beers that night. He woke up 2 hours later with sensation of reflux disease and "gurgling in his airway." He stated that he has had sour taste in his mouth and he thought that he aspirated. He came into [facility] in respiratory distress and subsequently was sent to the emergency department for further evaluation. He was eventually placed on overnight observation. He did have bilateral infiltrates noted on admission due to aspiration pneumonia. The patient did remarkably well. He never became hypoxic and has laboratory values at admission were grossly unremarkable apart from elevation of D-dimer. A CT angiogram obtained showed no evidence of PE. The patient is going to be discharged home with recommendations to follow up with his primary care provider in approximately 1 to 2 weeks. The patient also is recommended to have a followup chest x-ray in the next couple of weeks to compare with the chest x-rays from admission and continue on with x- rays until resolution. The patient was educated about keeping his head elevated of bed when sleeping. He was also educated about not eating 4 hours prior to going to bed. He was asked to avoid spicy foods and continue with his omeprazole. He was also asked to limit his alcohol intake. PHYSICAL EXAM AT THE TIME OF DISCHARGE: Vitals Signs: Blood pressure of 129/71 , heart rate of 95 and regular, respiratory rate 16, oxygen saturation 96% on room air, temperature 97.6. General: The patient is a pleasant 46-year-old obese male, who is in no acute distress. Awake, alert and oriented x3. HEENT: Head is atraumatic, normocephalic. Eyes: Pupils equal and reactive to light and accommodation. Oropharynx clear. Mucosa moist. Neck: Supple. No JVD. No bruits bilaterally. Cardiovascular: Regular rate and rhythm. No murmur. Respiratory: Crackles at the right lower base, otherwise clear. Abdomen: Soft , nontender. Bowel sounds present in all 4 quadrants. Extremities: There is no edema. Pulses +2 bilaterally. No clubbing or cyanosis. Neuro Evaluation: Grossly nonfocal. Cranial nerves II through XII grossly intact. Motor strength is 5/5 bilaterally. Please note that this is a short summary of the patient's hospital stay. Please refer to further medical records for details. [id number]/[facility] #: [id number] [facility]
== END 2016-12-31 09:10 | disposition home or self-care (01) ==
LOC: ED 12:03 → MED 13:40
PROVIDERS: ADMIT Internal Medicine; ATTEND Internal Medicine
DX: J69.0 Pneumonitis due to inhalation of food and vomit (principal); K21.9 Gastro-esophageal reflux disease without esophagitis; I10 Essential (primary) hypertension; E78.5 Hyperlipidemia, unspecified; F41.9 Anxiety disorder, unspecified; E89.0 Postprocedural hypothyroidism; Z79.899 Other long term (current) drug therapy; I48.91 Unspecified atrial fibrillation
CPT/HCPCS: 36415; 71020; 71275; 80053; 80307; 80320; 81003; 82550; 83605; 83880; 84484; 85025; 85379; 86140; 87040; 93005; 96365; 96366; 96372; 99284; A9270-GY; G0378; G0480; J1650; J2543; Q9967

== ENCOUNTER 2017-08-20 13:55 | Emergency (ER) | payer SELFPAY ==
[2017-08-20] MEDS ORDERED: Tetan/Diph/Pertus SYR(Tdap)* 0.5 ML SYR(BOOSTRIX) use SYR IM ONE (14:18)
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
[2017-08-20] MEDS ORDERED: oxyCODONE/Acetamin 5/325 MG* TAB ONE (14:57)
[2017-08-20] MEDS ORDERED: oxyCODONE/Acetamin 5/325 MG* TAB PO ONE (14:59)
[2017-08-20 17:26] VITALS: BP 144/109
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
== END 2017-08-20 17:26 | disposition home or self-care (01) ==
LOC: ED 13:55
DX: S63.502A Unspecified sprain of left wrist, initial encounter (principal); V49.40XA Driver injured in collision with unspecified motor vehicles in traffic accident, initial encounter; Y92.481 Parking lot as the place of occurrence of the external cause; R07.81 Pleurodynia
CPT/HCPCS: 71046; 90715; 96372; 99282; A9270-GY

== ENCOUNTER 2017-08-26 10:54 | Emergency (ER) | payer SELFPAY ==
[2017-08-26] MEDS ORDERED: HYDROcodone/ACETAMIN 5-325 MG* 1 TAB PO ONE (12:04)
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
[2017-08-26 12:54] VITALS: BP 160/99
== END 2017-08-26 12:38 | disposition short-term general hospital (02) ==
LOC: UCEAST 10:54
DX: R10.9 Unspecified abdominal pain (principal); V09.9XXA Pedestrian injured in unspecified transport accident, initial encounter; Y92.521 Bus station as the place of occurrence of the external cause
CPT/HCPCS: 87502; 99213; G0463

== ENCOUNTER 2017-08-26 12:57 | Emergency (ER) | payer SELFPAY ==
[2017-08-26] MEDS ORDERED: Ketorolac INJ* 30 MG/ML 1 ML VIAL IV ONE (13:22)
[2017-08-26] MEDS ORDERED: NS 0.9% 1000 ML* 1,000 ML IV ONE (13:22)
[2017-08-26 13:53] LABS: ABS Basophils 0 10^3/ul (0-0.2); ABS Eosinophils 0 10^3/ul (0-0.6); ABS Lymphocytes 1.4 10^3/ul (1.0-4.8); ABS Monocytes 0.7 10^3/ul (0-0.8); ABS Nucleated RBC 0 10^3/ul; Eosinophil % 0.1 % (0-6); Hematocrit 42 % (42-52); Hemoglobin 14.5 g/dl (14.0-18.0); Mean Corpuscular HGB Conc 34 g/dl (31-36); Mean Corpuscular Hemoglobin 29 pg (27-31); Mean Corpuscular Volume 86 fL (80-94); Mean Platelet Volume 8 um3 (7.4-10.4); Nucleated Red Blood Cells % 0; Platelet Count 242 10^3/ul (150-450); Red Blood Count 4.94 10^6/ul (4.0-5.4); Red Cell Distribution Width 14 % (10.5-15); White Blood Count 20.2 10^3/ul (3.5-10.8)
[2017-08-26 14:18] LABS: EGFR Non-African American 80.1 (>60)
[2017-08-26] MEDS ORDERED: Iohexol 300* (CONTRAST) 10 ML SDV IV ONE (15:04)
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
[2017-08-26 16:41] VITALS: BP 138/80
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
== END 2017-08-26 16:38 | disposition home or self-care (01) ==
LOC: ED 12:57
DX: R10.84 Generalized abdominal pain (principal); R53.83 Other fatigue
CPT/HCPCS: 36415; 74177; 80053; 83605; 83690; 84484; 85025; 85730; 86140; 87502; 87651; 93005; 96374; 99283; J1885; Q9967

== ENCOUNTER 2017-08-31 09:11 | Emergency (ER) | payer SELFPAY ==
[2017-08-31 09:22] VITALS: BP 152/100
--- NOTE | 2017-08-31 10:28 | RAD ---
INDICATION: Left elbow injury. TECHNIQUE: 4 views of the left elbow were obtained. FINDINGS: There is soft tissue swelling present. The bones are in normal alignment. No joint effusion or fracture is seen. Joint spaces appear maintained. IMPRESSION: SOFT TISSUE SWELLING, NO FRACTURE IS SEEN.
--- NOTE | 2017-08-31 10:29 | RAD ---
Indication: Left hand pain. 4 views of left hand demonstrates no fracture. No other bone or joint abnormality is noted. Radiocarpal joint is unremarkable. IMPRESSION: No fracture of the right hand is noted.
--- NOTE | 2017-08-31 10:30 | RAD ---
INDICATION: Left forearm injury. TECHNIQUE: 2 views of the left forearm were obtained. FINDINGS: There is dorsal soft tissue swelling. The bones are normal alignment. No fracture is seen. IMPRESSION: SOFT TISSUE SWELLING, NO FRACTURE IS SEEN.
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
== END 2017-08-31 10:57 | disposition home or self-care (01) ==
LOC: UCEAST 09:11
DX: S40.022A Contusion of left upper arm, initial encounter (principal); V03.90XA Pedestrian on foot injured in collision with car, pick-up truck or van, unspecified whether traffic or nontraffic accident, initial encounter; Y92.89 Other specified places as the place of occurrence of the external cause
CPT/HCPCS: 99212; G0463

== ENCOUNTER 2017-10-31 14:26 | Emergency (ER) | payer BC, OTHER ==
--- NOTE | 2017-10-31 14:29 | UC ---
Back Pain HPI - HPI Summary HPI Summary: 47 yo male presents with lower back pain for the last 3 days. He tells me that he does not recall a specific injury. Pain is on the lower left side of his back. Is worst is in the morning when he first wakes up, but loosens as the day goes on - but still painful. Denies radiation of pain, numbness, tingling, hx of kidney stone, dysuria, hematuria, fever, or chills. - History of Current Complaint Stated Complaint: BACK PAIN Time Seen by Provider: 10/31/17 14:27 Hx Obtained From: Patient Onset/Duration: Gradual Onset Timing: Constant Severity Initially: Moderate Severity Currently: Moderate Pain Intensity: 5 Pain Scale Used: 0-10 Numeric Character: Stiffness - Allergies/Home Medications Allergies/Adverse Reactions: Allergies Allergy/AdvReac Type Severity Reaction Status Date / Time No Known Allergies Allergy Verified 10/31/17 14:35 PMH/Surg Hx/FS Hx/Imm Hx Endocrine History: Hypothyroidism, Dyslipidemia Cardiovascular History: Hypertension GI/ History: Gastroesophageal Reflux Psychological History: Anxiety - Surgical History Surgical History: Yes Surgery Procedure, Year, and Place: WISDOM TEETH EXTRACTION - Family History Known Family History: Positive: None, Hypertension Negative: Cardiac Disease, Diabetes, Respiratory Disease Family History: hypothyroidism - Social History Occupation: Employed Full-time Lives: With Family Alcohol Use: Weekly Alcohol Amount: every other day Substance Use Type: None Smoking Status (MU): Never Smoked Tobacco - Immunization History Most Recent Influenza Vaccination: [id number] Season Review of Systems Constitutional: Negative Skin: Negative Respiratory: Negative Cardiovascular: Negative Gastrointestinal: Negative Genitourinary: Negative Neurovascular: Negative Musculoskeletal: Other: - LBP Neurological: Negative Psychological: Negative All Other Systems Reviewed And Are Negative: Yes Physical Exam - Summary Physical Exam Summary: GENERAL: NAD. WDWN. No pain distress. SKIN: No rashes, sores, lesions, or open wounds. NECK: Supple. FROM. Nontender. No lymphadenopathy. CHEST: CTAB. No r/r/w. No accessory muscle use. Breathing comfortably and in no distress. CV: RRR. Without m/r/g. Pulses intact. Brisk cap refill. MSK: TTP over left lumbar paraspinal muscles. Pain with flexion and extension of spine. Positive SLR left. Positive ATIF for back pain left. Strength 5/5 B/ L LEs including dorsiflexion and plantar flexion. FROM B/L LEs. No edema. NEURO: Alert. CN II-XII grossly intact. Sensations intact B/L LEs L3-S1. PSYCH: Age appropriate behavior. Triage Information Reviewed: Yes Vital Signs: Vital Signs: Temp Pulse Resp BP Pulse Ox 98.4 F 105 18 143/93 98 10/31/17 14:31 10/31/17 14:31 10/31/17 14:31 10/31/17 14:31 10/31/17 14:31 Back Pain Course/Dx - Course Course Of Treatment: Toradol 60mg IM given in clinic. Advised to continue tylenol for today and then ibuprofen starting tomorrow. Activities as tolerated. Information provided for back stretches. - Differential Dx/Diagnosis Provider Diagnoses: Low back strain Discharge - Sign-Out/Discharge Documenting (check all that apply): Discharge/Admit/Transfer - Discharge Plan Condition: Stable Disposition: HOME Patient Education Materials: Back Pain (ED), Lower Back Exercises (ED) Referrals: Lizette Umanzor [Primary Care Provider] - Additional Instructions: If you develop a fever, shortness of breath, chest pain, new or worsening symptoms - please call your PCP or go to the ED. Your blood pressure was high at todays visit. Please see your primary provider within 4 weeks for recheck and re-evaluation. - Billing Disposition and Condition Condition: STABLE Disposition: HOME
[2017-10-31 14:35] VITALS: BP 143/93
--- OUTSIDE RECORDS SUMMARY | 2017-10-31 14:36 | XMS REPORT ---
:1970 External Reference #:[id number] Author Organization [employer] Address [address] [address] Phone [phone] Care Team Providers Name Role Phone Lizette Umanzor FNP Primary Care Physician Unavailable Payers Type Date Identification Numbers Payment Provider Subscriber Commercial Policy Number: [id number] [employer] Hari Gonzalez PayID: [id number] [address] [address] [place] [address] Workers Compensation Onset: 2017 Policy Number: Denice Gonzalez [id number] PayID: [id number] [facility] Insurance [address] [place] [address] Problems Description No Active Problems Social History Type Date Description Comments Occupation [employer] Smoking Patient has never smoked Allergies, Adverse Reactions, Alerts Date Description Reaction Status Severity Comments 10/04/2017 NKDA active Medications Medication Date Status Form Strength Qnty SIG Indications Ordering Provider No Active 10/04/2017 Active Unknown Medications Vital Signs Date Vital Result Comment 10/04/2017 Height 68 inches 5'8" Heart Rate 114 /min BP Systolic 126 mmHg BP Diastolic 86 mmHg Respiratory Rate 17 /min Body Temperature 98.3 F Pain Level 4 09/27/2017 Height 68 inches 5'8" Weight 266.00 lb Heart Rate 100 /min irreg Respiratory Rate 16 /min Body Temperature 97.9 F Pain Level 5 BMI (Body Mass Index) 40.4 kg/m2 Results Description No Information Procedures Description No Information Encounters Type Date Location Provider CPT E/M Dx Office Visit 09/27/2017 [place] [address] M25.522 1:30p [facility] M25.532 M25.522 M25.532 Office Visit 12/30/2016 9:23a [facility], [place], [address] J69.0 Hospitalists Ashlie Plan of Care Future Appointment(s):11/01/2017 2:45 pm - Theron Sharma MD at [facility]10/04/2017 - Theron Sharma, MDM25.522 Pain in left elbowNew Therapy:Physical TherapyFollow up:Follow up: 4 [id number] Pain in left wristNew Therapy:Physical Therapy
[2017-10-31] MEDS ORDERED: Ketorolac INJ* 60 MG/2 ML VIAL IM ONE (14:49)
== END 2017-10-31 15:15 | disposition home or self-care (01) ==
LOC: UCEAST 14:26
DX: S39.012A Strain of muscle, fascia and tendon of lower back, initial encounter (principal); I10 Essential (primary) hypertension; X58.XXXA Exposure to other specified factors, initial encounter; Y92.9 Unspecified place or not applicable
CPT/HCPCS: 96372; 99211; G0463; J1885

== ENCOUNTER 2017-12-22 18:58 | Emergency (ER) | payer BC ==
[2017-12-22 19:08] VITALS: BP 143/98
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
== END 2017-12-22 19:38 | disposition home or self-care (01) ==
LOC: UCEAST 18:58
DX: R00.2 Palpitations (principal); I45.10 Unspecified right bundle-branch block; E05.00 Thyrotoxicosis with diffuse goiter without thyrotoxic crisis or storm; I10 Essential (primary) hypertension; K21.9 Gastro-esophageal reflux disease without esophagitis; Z82.49 Family history of ischemic heart disease and other diseases of the circulatory system; Z83.49 Family history of other endocrine, nutritional and metabolic diseases
CPT/HCPCS: 93005; 99211; G0463

== ENCOUNTER 2018-03-17 20:38 | Emergency (ER) | payer BC, OTHER ==
--- NOTE | 2018-03-17 21:08 | UC ---
Respiratory Complaint HPI - HPI Summary HPI Summary: Pt presents to urgent care with sharp chest discomfort - nearly resolved. PT states has had head cold x 2 days. Pt states has sinus congestion, pnd, decreased appetite and fatigue. pt with cough. had secretions this morning - no secretion since, but continues with cough. Pt states has not taken any medications for same. Pt states ate lunch, but nothing since. Pt states he developed chest discomort approx 1 hour ago. No sob, diaphoresis, radiation with it. Pt states ate some tums and sx improved. no changes with activity. Pt with h/o GERD - takes daily med.Pt state thought pain was related to cough. No analgesia taken. Pt with htn, hld. No DM. No cardiac hx. Pt's medications reviewed this visit - History of Current Complaint Chief Complaint: UCChestPain Stated Complaint: COUGH Time Seen by Provider: 03/17/18 21:00 Hx Obtained From: Patient, Medical Records Pain Intensity: 0 - Allergies/Home Medications Allergies/Adverse Reactions: Allergies Allergy/AdvReac Type Severity Reaction Status Date / Time No Known Allergies Allergy Verified 12/22/17 19:08 Home Medications: Home Medications Acetaminophen [APAP] 325 mg PO ONCE PRN 03/17/18 [History Confirmed 03/17/18] Calcium Carbonate CHEW TAB* [Tums*] 2,000 mg PO ONCE PRN 03/17/18 [History Confirmed 03/17/18] PMH/Surg Hx/FS Hx/Imm Hx Previously Healthy: Yes Endocrine History: Dyslipidemia Cardiovascular History: Hypertension - Surgical History Surgical History: Yes Surgery Procedure, Year, and Place: WISDOM TEETH EXTRACTION - Family History Known Family History: Positive: None, Hypertension Negative: Cardiac Disease, Diabetes, Respiratory Disease Family History: hypothyroidism - Social History Occupation: Employed Full-time Lives: With Family Alcohol Use: Weekly Alcohol Amount: every other day Substance Use Type: None Smoking Status (MU): Never Smoked Tobacco - Immunization History Most Recent Influenza Vaccination: 8521-2270 Season Review of Systems Constitutional: Negative ENT: Nasal Discharge, Sinus Congestion, Sinus Pain/Tenderness Cardiovascular: Chest Pain Gastrointestinal: Other - epigastric All Other Systems Reviewed And Are Negative: Yes Physical Exam - Summary Physical Exam Summary: Vital Signs Reviewed: Yes A+Ox3, no distress Eyes: Conjunctiva Clear, ALEXIA. EOM intact and full ENT: Hearing grossly normal TM x 2 clear, turbinates inflammed, + PND, mmoist, uvula midline, no exudate, no erythema Neck: Positive: Supple no lymphadenopathy Respiratory: Positive: No respiratory distress, No accessory muscle use + CTA throughout no w/r, coarse, intermittent cough some reproduction of pain with palpation of distal sternum. no crepitus Cardiovascular: RRR nl s1, s2 no m/r CBT <2 sec no bruits abd soft + BS, + TTP epigatric pain with direct palpation, no guarding, no distension Musculoskeletal Exam: MENDES x 4 without difficulty Strength Intact, ROM Intact Neurological: Positive: Alert, + sensation throughout Psychological: Positive: Normal Response To Family Skin: Positive: no rash, no ecchymosis Triage Information Reviewed: Yes Vital Signs: Initial Vital Signs Temp 98.8 F 03/17/18 20:58 Pulse 99 03/17/18 20:58 Resp 20 03/17/18 20:58 BP 156/98 03/17/18 20:58 Pulse Ox 96 03/17/18 20:58 UC Diagnostic Evaluation - Laboratory O2 Sat by Pulse Oximetry: 96 - Radiology Radiology Interpretation Completed By: Radiologist - Patient Name: AMINATA MCCORMICK Medical Record#: [id number] - EKG Cardiac Rate: NL Cardiac Rhythm: Sinus: Normal, Other Rhythm: Old - RBBB 12/[address] Segment: Normal EKG Comparison: No Significant Change Re-Evaluation - Re-Evaluation First Eval Change: Improved - Pt reports no sx following GI cocktail Pt without discomfort , sob with ambultation pt's BP remains elevated - has h/o similar recommend maalox/mylanta small frequent meals avoid spicy/acidic foods very strict return precautions discussed f/u with PCP this week to ED if returns or other concerns Respiratory Course/Dx - Course Course Of Treatment: Pt presents with head congestion and cough x 2 days. Pt had epigastric, sharp chest pain approx 1 hour ago. Sx improved with Tums. No diaphoresis, cp. Pt with mild elevated bp - h/o same. Pt with mild reproducible cp with direct palpation and epigatric pain. Pt EKG without acute changes. Will check cxr, GI cocktail and reassess. - Differential Dx/Diagnosis Provider Diagnoses: URI. cough. epigastric pain. htn Discharge - Sign-Out/Discharge Documenting (check all that apply): Patient Departure All imaging exams completed and their final reports reviewed: No - Discharge Plan Condition: Stable Disposition: HOME Patient Education Materials: Upper Respiratory Infection (ED), Hypertension (ED ), Epigastric Pain (ED) Referrals: Lizette Umanzor [Primary Care Provider] - Additional Instructions: The doctor that evaluated you today thinks your symptom are related to your head cold as well as stomach acid. The following is recommended: - stay well hydrated - drink plenty of non-alcoholic non-caffinated beverages - eat small, frequent meals - avoid spicy food, acidic foods, tomato based food, carbonated beverages and alcohol - continue to take your medications exactly as previously prescribed -if your pain returns, you develop shortness of breath, sweating, lightheadedness or ANY Other questions or concerns it is recommended you call 911 and go directly to the emergency department. - your blood pressure was elevated at today's visit - it is strongly recommended you contact your doctor to schedule a follow-up appointment. - Billing Disposition and Condition Condition: STABLE Disposition: Home
[2018-03-17] MEDS ORDERED: Lidocaine 2% VISCOUS* 15 ML UDC PO ONE (21:20)
[2018-03-17] MEDS ORDERED: Al Hydrox/Mg Hydrox/Simet LIQ* 30 ML UDC PO ONE (21:20)
[2018-03-17 21:57] VITALS: BP 152/101
--- NOTE | 2018-03-18 08:35 | RAD ---
INDICATION: Cough, central chest pain. COMPARISON: August 26, [address] August 20, 2017 chest radiograph. TECHNIQUE: Dual energy PA and routine lateral views of the chest were obtained. REPORT: Clear lungs and pleural spaces. Negative for pneumothorax. The heart, pulmonary vasculature, and mediastinal contours are unremarkable. Unremarkable osseous structures and soft tissue contours. IMPRESSION: #. No evidence for acute intrathoracic disease. R0
--- NOTE | 2018-03-18 10:10 | UC ---
- EKG/XRAY/CT Xray Comments: wet read correct Discharge - Sign-Out/Discharge Documenting (check all that apply): Post-Discharge Follow Up All imaging exams completed and their final reports reviewed: Yes - Discharge Plan Condition: Stable Disposition: HOME Patient Education Materials: Upper Respiratory Infection (ED), Hypertension (ED ), Epigastric Pain (ED) Referrals: Lizette Umanzor [Primary Care Provider] - Additional Instructions: The doctor that evaluated you today thinks your symptom are related to your head cold as well as stomach acid. The following is recommended: - stay well hydrated - drink plenty of non-alcoholic non-caffinated beverages - eat small, frequent meals - avoid spicy food, acidic foods, tomato based food, carbonated beverages and alcohol - continue to take your medications exactly as previously prescribed -if your pain returns, you develop shortness of breath, sweating, lightheadedness or ANY Other questions or concerns it is recommended you call 911 and go directly to the emergency department. - your blood pressure was elevated at today's visit - it is strongly recommended you contact your doctor to schedule a follow-up appointment. - Billing Disposition and Condition Condition: STABLE Disposition: Home
--- NOTE | 2018-03-18 10:19 | UC ---
- EKG/XRAY/CT Xray Comments: wet read correct Re-Evaluation - Re-Evaluation First Eval Change: Improved - Pt reports no sx following GI cocktail Pt without discomfort , sob with ambultation pt's BP remains elevated - has h/o similar recommend maalox/mylanta small frequent meals avoid spicy/acidic foods very strict return precautions discussed f/u with PCP this week to ED if returns or other concerns Discharge - Sign-Out/Discharge Documenting (check all that apply): Post-Discharge Follow Up All imaging exams completed and their final reports reviewed: Yes - Discharge Plan Condition: Stable Disposition: HOME Patient Education Materials: Upper Respiratory Infection (ED), Hypertension (ED ), Epigastric Pain (ED) Referrals: Lizette Umanzor [Primary Care Provider] - Additional Instructions: The doctor that evaluated you today thinks your symptom are related to your head cold as well as stomach acid. The following is recommended: - stay well hydrated - drink plenty of non-alcoholic non-caffinated beverages - eat small, frequent meals - avoid spicy food, acidic foods, tomato based food, carbonated beverages and alcohol - continue to take your medications exactly as previously prescribed -if your pain returns, you develop shortness of breath, sweating, lightheadedness or ANY Other questions or concerns it is recommended you call 911 and go directly to the emergency department. - your blood pressure was elevated at today's visit - it is strongly recommended you contact your doctor to schedule a follow-up appointment. - Billing Disposition and Condition Condition: STABLE Disposition: Home
== END 2018-03-17 22:35 | disposition home or self-care (01) ==
LOC: UCEAST 20:38
DX: J06.9 Acute upper respiratory infection, unspecified (principal); R10.13 Epigastric pain; K21.9 Gastro-esophageal reflux disease without esophagitis; R05 Cough; I10 Essential (primary) hypertension
CPT/HCPCS: 71046; 93005; 99202; A9270-GY; G0463

== ENCOUNTER 2018-05-08 15:24 | Emergency (ER) | payer BC ==
--- NOTE | 2018-05-08 17:01 | ED ---
HPI Chest Pain - HPI Summary HPI Summary: This patient is a 48 year old M presenting to [facility] with a chief complaint of intermittent chest pressure for the last 6 months. The patient rates the pain 1/ 10 in severity. Symptoms aggravated by nothing. Symptoms alleviated by nothing. Patient denies SOB, radiation, n/v/d, dizziness, diaphoresis, paresthesia, chills, edema, and fever. Pt states he went to PCP and believed it was anxiety, PCP is requesting a full work up. Dr Umanzor was seeing him today for a general physical, he has had elevated BP recently. He reports that he recently lost weight and gained it back with extra, he believe this may be contributing to the pain. - History of Current Complaint Chief Complaint: EDChestPainROMI Time Seen by Provider: 05/08/18 16:02 Hx Obtained From: Patient Onset/Duration: Started Weeks Ago - months, Still Present Timing: Constant, Lasting Weeks Initial Severity: Mild Current Severity: Mild Pain Intensity: 1 Pain Scale Used: 0-10 Numeric Chest Pain Location: Diffuse Chest Pain Radiates: No Character: Pressure/Squeezing Associated Signs and Symptoms: Positive: Negative - SOB - Allergy/Home Medications Allergies/Adverse Reactions: Allergies Allergy/AdvReac Type Severity Reaction Status Date / Time No Known Allergies Allergy Verified 05/08/18 15:29 PMH/Surg Hx/FS Hx/Imm Hx Endocrine/Hematology History: Reports: Hx Thyroid Disease - HX GRAVE'S DISEASE Denies: Hx Diabetes Cardiovascular History: Reports: Hx Hypertension - on meds Respiratory History: Denies: Hx Asthma, Hx Chronic Obstructive Pulmonary Disease (COPD) GI History: Reports: Hx Gastroesophageal Reflux Disease Denies: Hx Ulcer History: Denies: Hx Renal Disease Sensory History: Denies: Hx Contacts or Glasses, Hx Hearing Aid Opthamlomology History: Denies: Hx Contacts or Glasses - Surgical History Surgery Procedure, Year, and Place: WISDOM TEETH EXTRACTION Infectious Disease History: No Infectious Disease History: Denies: Hx Clostridium Difficile, Hx Hepatitis, Hx Human Immunodeficiency Virus (HIV), Hx of Known/Suspected MRSA, Hx Shingles, Hx Tuberculosis, Hx Known/ Suspected VRE, Hx Known/Suspected VRSA, History Other Infectious Disease, Traveled Outside the [place] in Last 30 Days - Family History Known Family History: Positive: Hypertension Negative: Cardiac Disease, Diabetes, Respiratory Disease Family History: hypothyroidism - Social History Alcohol Use: Weekly Alcohol Amount: every other day Hx Substance Use: No Substance Use Type: Reports: None Hx Tobacco Use: No Smoking Status (MU): Never Smoked Tobacco Review of Systems Negative: Fever, Chills, Skin Diaphoresis Positive: Chest Pain Negative: Shortness Of Breath Negative: Vomiting, Diarrhea, Nausea Negative: Edema Neurological: Negative - dizziness Negative: Paresthesia All Other Systems Reviewed And Are Negative: Yes Physical Exam - Summary Physical Exam Summary: Appearance: The patient is well-nourished in no acute distress and in no acute pain. Skin: The skin is warm and dry and skin color reflects adequate perfusion. HEENT: The head is normocephalic and atraumatic. The pupils are equal and reactive. The conjunctivae are clear and without drainage. Nares are patent and without drainage. Mouth reveals moist mucous membranes and the throat is without erythema and exudate. The external ears are intact. The ear canals are patent and without drainage. The tympanic membranes are intact. Neck: The neck is supple with full range of motion and non-tender. There are no carotid bruits. There is no neck vein distension. Respiratory: Chest is non-tender. Lungs are clear to auscultation and breath sounds are symmetrical and equal. Cardiovascular: Heart is regular rate and rhythm. There is no murmur or rub auscultated. Abdomen: The abdomen is soft and non-tender. There are normal bowel sounds heard in all four quadrants and there is no organomegaly palpated. Musculoskeletal: There is no back tenderness noted. Extremities are non-tender with full range of motion. There is good capillary refill. There is mild bilateral pitting edema Neurological: Patient is alert and oriented to person, place and time. The patient has symmetrical motor strength in all four extremities. Cranial nerves are grossly intact. Deep tendon reflexes are symmetrical and equal in all four extremities. Psychiatric: The patient has an appropriate affect and does not exhibit any anxiety or depression. Triage Information Reviewed: Yes Vital Signs On Initial Exam: Initial Vitals Temp Pulse Resp BP Pulse Ox 98.5 F 78 16 153/106 97 05/08/18 15:27 05/08/18 15:27 05/08/18 15:27 05/08/18 15:27 05/08/18 15:27 Vital Signs Reviewed: Yes Diagnostics - Vital Signs Vital Signs Temp Pulse Resp BP Pulse Ox 05/08/18 15:27 98.5 F 78 16 153/106 97 - Laboratory Result Diagrams: 05/08/18 17:09 05/08/18 17:09 Lab Statement: Any lab studies that have been ordered have been reviewed, and results considered in the medical decision making process. - Radiology CXR Radiology Interpretation Completed By: Radiologist - IMPRESSION: #. No evidence for acute intrathoracic disease. The ED physician reviewed this radiology report. - EKG 17:15 Cardiac Rate: NL - 81 bpm EKG Rhythm: Sinus Rhythm Summary of EKG Findings: No change from 03/17/2018 Chest Pain Course/Dx - Course Course Of Treatment: Mr. Avendaño presented with an atypical chest pain that has been going on and off for several months and has been present most of today. It is not accompanied by any associated symptoms and he cannot identify any aggravating or relieving factors. He was kept on the monitor, was nontoxic in appearance and had stable vital signs here. EKG chest x-ray and labs including a d-dimer and a delayed troponin were negative and he was reassured and discharged for follow-up with his PCP. - Diagnoses Provider Diagnoses: Chest pain Discharge - Sign-Out/Discharge Documenting (check all that apply): Patient Departure - DC - Discharge Plan Condition: Stable Disposition: HOME Patient Education Materials: Chest Pain (ED) Referrals: Lizette Umanzor [Primary Care Provider] - Additional Instructions: Follow up with PCP in 2 days Return to ED for any new or worsening symptoms - Billing Disposition and Condition Condition: STABLE Disposition: Home - Attestation Statements Document Initiated by Scribe: Yes Documenting Scribe: Carlos Grover Provider For Whom Kellee is Documenting (Include Credential): Dr. Jeferson Colby MD Scribe Attestation: Carlos Thapa, scribed for Dr. Jeferson Colby MD on at 2111. Scribe Documentation Reviewed: Yes Provider Attestation: The documentation as recorded by the scribe, Carlos Grover accurately reflects the service I personally performed and the decisions made by me, Dr. Jeferson Colby MD
[2018-05-08 17:20] LABS: ABS Basophils 0 10^3/ul (0-0.2); ABS Eosinophils 0.3 10^3/ul (0-0.6); ABS Lymphocytes 2.3 10^3/ul (1.0-4.8); ABS Monocytes 0.6 10^3/ul (0-0.8); ABS Neutrophils 4.2 10^3/ul (1.5-7.7); ABS Nucleated RBC 0 10^3/ul; Eosinophil % 4.5 %; Hematocrit 42 % (42-52); Mean Corpuscular HGB Conc 33 g/dl (31-36); Mean Corpuscular Hemoglobin 29 pg (27-31); Mean Corpuscular Volume 87 fL (80-94); Mean Platelet Volume 7.9 fL (7.4-10.4); Nucleated Red Blood Cells % 0.1; Platelet Count 217 10^3/ul (150-450); Red Blood Count 4.84 10^6/ul (4.00-5.40); Red Cell Distribution Width 13 % (10.5-15); White Blood Count 7.5 10^3/ul (3.5-10.8)
[2018-05-08 17:28] LABS: INR 1.01 (0.77-1.02)
[2018-05-08 17:37] LABS: EGFR Non-African American 76.2 (>60)
[2018-05-08 21:40] VITALS: BP 159/103
== END 2018-05-08 21:39 | disposition home or self-care (01) ==
LOC: ED 15:24
DX: R07.9 Chest pain, unspecified (principal); E05.00 Thyrotoxicosis with diffuse goiter without thyrotoxic crisis or storm; I10 Essential (primary) hypertension; K21.9 Gastro-esophageal reflux disease without esophagitis
CPT/HCPCS: 36415; 71045; 80053; 83605; 84443; 84484; 85025; 85379; 85610; 93005; 99283